=== PATIENT | male | born 1945 | race Hispanic/Latino ===

== ENCOUNTER 2018-08-10 06:44 | Observation (INO) | payer MEDICARE ==
[~2018-08-10] VITALS: Ht 170.2 cm; Wt 76.8 kg
[2018-08-10] MEDS ORDERED: ASPIRIN 325 MG TABLET ONE (06:52)
[2018-08-10 07:07] LABS: BASOPHILS % (AUTO) 1.1 % (0.0-5.0); EOSINOPHILS % (AUTO) 1.7 % (0.0-8.0); HEMATOCRIT 40.3 % (42-54); LYMPHOCYTES % (AUTO) 38.4 % (21.0-51.0); MEAN CORPUSCULAR HEMOGLOBIN 30.2 pg (27.0-33.0); MEAN CORPUSCULAR HGB CONC 34.3 g/dL (32.0-36.0); MONOCYTES % (AUTO) 7.7 % (3.0-13.0); NEUTROPHILS % (AUTO) 51.1 % (40.0-77.0); PLATELET COUNT (AUTO) 207 K/uL (130-400); RED BLOOD CELL COUNT(AUTO) 4.58 MIL/uL (4.50-6.20); RED CELL DISTRIBUTION WIDTH 14.1 % (11.0-15.5); WHITE BLOOD COUNT (AUTO) 5.4 K/uL (4.8-10.8)
[2018-08-10 07:11] LABS: POTASSIUM 3.9 mmol/L (3.5-5.1)
[2018-08-10 07:24] LABS: ALBUMIN 3.7 g/dL (3.5-5.0); BILIRUBIN,TOTAL 0.4 mg/dL (0.2-1.0); TOTAL PROTEIN, SERUM 7.3 g/dL (6.0-8.3)
[2018-08-10 07:35] LABS: INR 1.06 (0.85-1.15); PARTIAL THROMBOPLASTIN TIME 28.8 SEC (26.3-35.5); PROTHROMBIN TIME 11.1 SEC (9.6-11.6)
[2018-08-10] MEDS ORDERED: ONDANSETRON HCL 4 MG/2 ML VIAL ONE (07:46)
[2018-08-10] MEDS ORDERED: MORPHINE SULFATE 4 MG/1ML SYG ONE (07:47)
[2018-08-10] MEDS ORDERED: ACETAMINOPHEN 325 MG TAB PO PRN (10:15)
[2018-08-10] MEDS ORDERED: MORPHINE SULFATE 2 MG/ML 1ML SYG IV PRN (10:15)
[2018-08-10] MEDS ORDERED: HYDRALAZINE HCL 20 MG/ML VIAL IV PRN (10:15)
[2018-08-10] MEDS ORDERED: ONDANSETRON HCL 4 MG/2 ML VIAL IV PRN (10:15)
[2018-08-10 11:12] LABS: HEMOGLOBIN A1C 5.9 % (4.0-6.0)
[2018-08-10 11:25] VITALS: BP 153/64
[2018-08-10] MEDS: NITROGLYCERIN 1GM/1 INCH PACKET TD SCH ×2 (13:27→20:16)
[2018-08-10] MEDS: SODIUM CHLORIDE 0.9% 1000ML 1,000 ML IV SCH ×2 (13:27→20:15)
[2018-08-10] MEDS: PANTOPRAZOLE SODIUM 40 MG TABLET.DR PO SCH (13:28)
[2018-08-10 15:40] LABS: CREATINE KINASE, TOTAL 311 U/L (21-232); MYOGLOBIN 82 ng/mL (10-92); TROPONIN I < 0.04 ng/mL (0.00-0.06)
[2018-08-10 16:00] VITALS: BP_SYST 120; BP_SYST 149; BP_DIAS 64; BP_DIAS 69
[2018-08-10 20:00] VITALS: BP 107/51
[2018-08-10] MEDS: PREDNISONE 20 MG TABLET PO SCH (20:17)
[2018-08-10] MEDS: METOPROLOL TARTRATE 25 MG TAB PO SCH (21:10)
[2018-08-10 22:48] LABS: CREATINE KINASE, TOTAL 275 U/L (21-232); MYOGLOBIN 70 ng/mL (10-92); TROPONIN I < 0.04 ng/mL (0.00-0.06)
[2018-08-11] VITALS: BP 95/50
[2018-08-11 02:20] LABS: CREATINE KINASE, TOTAL 269 U/L (21-232); MYOGLOBIN 62 ng/mL (10-92); TROPONIN I < 0.04 ng/mL (0.00-0.06)
[2018-08-11] MEDS: NITROGLYCERIN 1GM/1 INCH PACKET TD SCH ×2 (02:32→09:17)
[2018-08-11 04:00] VITALS: BP 86/57
[2018-08-11] MEDS: SODIUM CHLORIDE 0.9% 1000ML 1,000 ML IV SCH (04:48)
[2018-08-11] MEDS ORDERED: IBUP-2070 PO (06:07)
[2018-08-11] MEDS ORDERED: NAPR-1023 PO (06:07)
[2018-08-11 07:30] VITALS: BP 97/49
[2018-08-11] MEDS ORDERED: CLOPIDOGREL BISULFATE 75 MG TAB PO SCH (09:00)
[2018-08-11] MEDS ORDERED: ENOXAPARIN SODIUM 40 MG/0.4 ML SYRINGE SQ SCH (09:00)
[2018-08-11] MEDS ORDERED: ASPIRIN 325 MG TABLET PO SCH (09:00)
[2018-08-11] MEDS: PREDNISONE 20 MG TABLET PO SCH (09:17)
[2018-08-11] MEDS: METOPROLOL TARTRATE 25 MG TAB PO SCH (09:17)
[2018-08-11] MEDS: PANTOPRAZOLE SODIUM 40 MG TABLET.DR PO SCH (09:22)
[2018-08-11 11:00] VITALS: BP 110/69
== END 2018-08-11 16:00 | disposition home or self-care (01) ==
LOC: EDH 06:44 → EDHIP 10:03 → 3CH 11:26
PROVIDERS: ADMIT Internal Medicine; ATTEND Internal Medicine
DX: R07.89 Other chest pain (principal); M94.0 Chondrocostal junction syndrome [Tietze]; K21.9 Gastro-esophageal reflux disease without esophagitis
CPT/HCPCS: 36415 ×2; 70450; 71045; 80053; 82550 ×4; 83036; 83874 ×4; 83880; 84484 ×4; 85025; 85610; 85730; 93005 ×2; 93306; 96372; 96374; 99285; G0378 ×30; J1650; J2270; J2405; J7030

== ENCOUNTER 2021-08-01 15:45 | Emergency (ER) | payer MEDICARE ==
[~2021-08-01] VITALS: Ht 157.5 cm; Wt 68.5 kg
[~2021-08-01 15:45] MED LIST: IBUP-2070 PO; NAPR-1023 PO
[2021-08-01 18:38] LABS: BASOPHILS % (AUTO) 0.8 % (0.0-5.0); HEMATOCRIT 42.4 % (42-54); LYMPHOCYTES % (AUTO) 38.2 % (21.0-51.0); MEAN CORPUSCULAR HEMOGLOBIN 30.4 pg (27.0-33.0); MEAN CORPUSCULAR VOLUME 92.2 fL (79-99); MONOCYTES % (AUTO) 7.6 % (3.0-13.0); PLATELET COUNT (AUTO) 210 K/uL (130-400); RED CELL DISTRIBUTION WIDTH 13.7 % (11.0-15.5); WHITE BLOOD COUNT (AUTO) 7.9 K/uL (4.8-10.8)
[2021-08-01 18:55] LABS: CREATININE 0.8 mg/dL (0.5-1.5); POTASSIUM 4.2 mmol/L (3.5-5.1)
[2021-08-01 18:59] LABS: ALBUMIN 4.4 g/dL (3.5-5.0); BILIRUBIN,TOTAL 0.5 mg/dL (0.2-1.0); TOTAL PROTEIN, SERUM 8.1 g/dL (6.0-8.3)
[2021-08-01 20:04] VITALS: BP 145/73
[2021-08-01] MEDS ORDERED: CEPH500B PO (20:24)
[2021-08-01] MEDS ORDERED: MELO7.5T12 PO (20:24)
[2021-08-01] MEDS ORDERED: IBUPROFEN 600 MG TABLET PO ONE (20:30)
[2021-08-01] MEDS ORDERED: TETANUS/DIPHTHERIA TOXOID [ADULT] 0.5 ML VIAL IM ONE (20:30)
[2021-08-01] MEDS ORDERED: CEPHALEXIN 500 MG CAPSULE PO ONE (20:30)
== END 2021-08-01 20:55 | disposition home or self-care (01) ==
LOC: EDH 15:45
DX: L03.116 Cellulitis of left lower limb (principal); Z79.899 Other long term (current) drug therapy
CPT/HCPCS: 36415; 73630; 80053; 83605; 85025; 87040; 90471; 90714

== ENCOUNTER 2021-11-11 16:51 | Observation (INO) | payer MEDICARE ==
[~2021-11-11] VITALS: Ht 157.5 cm; Wt 72.6 kg
[~2021-11-11 16:51] MED LIST changes: +CEPH500B PO; +MELO7.5T12 PO
[2021-11-11 21:31] LABS: BASOPHILS % (AUTO) 0.9 % (0.0-5.0); EOSINOPHILS % (AUTO) 1.5 % (0.0-8.0); HEMATOCRIT 41.8 % (42-54); LYMPHOCYTES % (AUTO) 37.3 % (21.0-51.0); MEAN CORPUSCULAR HEMOGLOBIN 30.2 pg (27.0-33.0); MEAN CORPUSCULAR HGB CONC 32.8 g/dL (32.0-36.0); MEAN CORPUSCULAR VOLUME 92.3 fL (79-99); MONOCYTES % (AUTO) 6.9 % (3.0-13.0); NEUTROPHILS % (AUTO) 53.2 % (40.0-77.0); PLATELET COUNT (AUTO) 242 K/uL (130-400); RED BLOOD CELL COUNT(AUTO) 4.53 MIL/uL (4.50-6.20); RED CELL DISTRIBUTION WIDTH 13.7 % (11.0-15.5); WHITE BLOOD COUNT (AUTO) 6.7 K/uL (4.8-10.8)
[2021-11-11 21:32] LABS: APPEARANCE,URINE Clear (CLEAR); BILIRUBIN,URINE Negative (NEGATIVE); COLOR,URINE Yellow (YELLOW); GLUCOSE, URINE (UA) Negative (NEGATIVE); KETONES,URINE Negative (NEGATIVE); LEUKOCYTE ESTERASE ,URINE Negative (NEGATIVE); NITRATE,URINE Negative (NEGATIVE); OCCULT BLOOD,URINE Negative (NEGATIVE); PH,URINE 6.5 (5.0-8.0); PROTEIN,URINE Negative (NEGATIVE)
[2021-11-11 21:42] LABS: CREATININE 0.8 mg/dL (0.5-1.5); POTASSIUM 4.1 mmol/L (3.5-5.1)
[2021-11-11 21:57] LABS: ALBUMIN 4.3 g/dL (3.5-5.0); BILIRUBIN,TOTAL 0.3 mg/dL (0.2-1.0); TOTAL PROTEIN, SERUM 7.9 g/dL (6.0-8.3)
[2021-11-12] MEDS ORDERED: 0.9%NACL 1000ML 1,000 ML IV ONE (00:30)
[2021-11-12] MEDS ORDERED: IOHEXOL-350 75 ML VIAL IV ONE (00:55)
[2021-11-12] MEDS ORDERED: ACETAMINOPHEN 500 MG TABLET ONE (00:56)
[2021-11-12 04:22] LABS: AMPHET/METH SCREEN,URINE NEGATIVE (NEGATIVE); BARBITURATE SCREEN, URINE NEGATIVE (NEGATIVE); BENZODIAZEPINES SCREEN,URINE NEGATIVE (NEGATIVE); CANNABINOID SCREEN,URINE NEGATIVE (NEGATIVE); COCAINE SCREEN,URINE NEGATIVE (NEGATIVE); OPIATE SCREEN,URINE NEGATIVE (NEGATIVE); PHENCYCLIDINE SCREEN,URINE NEGATIVE (NEGATIVE)
[2021-11-12] MEDS ORDERED: ONDANSETRON 4MG INJ IV PRN (04:30)
[2021-11-12] MEDS ORDERED: NITROGLYCERIN 0.4 MG SL TAB SL PRN (04:30)
[2021-11-12] MEDS ORDERED: ACETAMINOPHEN 325 MG TAB PO PRN ×2 (04:30)
[2021-11-12 06:58] LABS: INR 1.07 (0.85-1.15); PROTHROMBIN TIME 11.6 SEC (9.6-11.6)
[2021-11-12 06:59] LABS: PARTIAL THROMBOPLASTIN TIME 29.1 SEC (26.3-35.5)
[2021-11-12 07:04] LABS: HEMOGLOBIN A1C 5.6 % (4.0-6.0)
[2021-11-12 07:21] LABS: ALBUMIN 3.7 g/dL (3.5-5.0); BILIRUBIN,TOTAL 0.5 mg/dL (0.2-1.0); CREATININE 0.7 mg/dL (0.5-1.5); MAGNESIUM 2.2 mg/dL (1.80-2.40); POTASSIUM 4.1 mmol/L (3.5-5.1); THYROID STIMULATING HORMONE 2.7 uIU/mL (0.36-3.74); TOTAL PROTEIN, SERUM 6.9 g/dL (6.0-8.3)
[2021-11-12] MEDS: ENOXAPARIN SODIUM 40 MG/0.4 ML SYRINGE SQ SCH (09:39)
[2021-11-12] MEDS: FAMOTIDINE 20MG TAB PO SCH ×2 (09:39→20:41)
[2021-11-12] MEDS: ASPIRIN 81 MG EC TAB PO SCH (09:39)
[2021-11-12 15:00] VITALS: BP 126/76
[2021-11-12 18:20] VITALS: BP 118/75
[2021-11-12 18:23] VITALS: BP 125/80
[2021-11-12 18:26] VITALS: BP 137/66
[2021-11-12 20:42] VITALS: BP 103/61
[2021-11-13 00:24] VITALS: BP 97/60
[2021-11-13 03:40] VITALS: BP 93/51
[2021-11-13 06:27] LABS: BASOPHILS % (AUTO) 0.9 % (0.0-5.0); EOSINOPHILS % (AUTO) 1.7 % (0.0-8.0); HEMATOCRIT 40.5 % (42-54); LYMPHOCYTES % (AUTO) 34.8 % (21.0-51.0); MEAN CORPUSCULAR HEMOGLOBIN 30.3 pg (27.0-33.0); MEAN CORPUSCULAR HGB CONC 32.3 g/dL (32.0-36.0); MEAN CORPUSCULAR VOLUME 93.5 fL (79-99); NEUTROPHILS % (AUTO) 56.4 % (40.0-77.0); PLATELET COUNT (AUTO) 238 K/uL (130-400); RED BLOOD CELL COUNT(AUTO) 4.33 MIL/uL (4.50-6.20); RED CELL DISTRIBUTION WIDTH 13.7 % (11.0-15.5); WHITE BLOOD COUNT (AUTO) 5.4 K/uL (4.8-10.8)
[2021-11-13 06:42] LABS: ALBUMIN 3.8 g/dL (3.5-5.0); BILIRUBIN,TOTAL 0.4 mg/dL (0.2-1.0); CREATININE 0.8 mg/dL (0.5-1.5); POTASSIUM 3.7 mmol/L (3.5-5.1); TOTAL PROTEIN, SERUM 7.1 g/dL (6.0-8.3)
[2021-11-13 07:25] VITALS: BP 98/67
[2021-11-13] MEDS: FAMOTIDINE 20MG TAB PO SCH (08:55)
[2021-11-13] MEDS: ASPIRIN 81 MG EC TAB PO SCH (08:55)
[2021-11-13] MEDS: ENOXAPARIN SODIUM 40 MG/0.4 ML SYRINGE SQ SCH (08:56)
[2021-11-13] MEDS ORDERED: MECL-226 PO (09:27)
[2021-11-13] MEDS ORDERED: MECLIZINE HCL 12.5 MG TABLET PO PRN (09:30)
[2021-11-13 11:00] VITALS: BP 120/71
== END 2021-11-13 16:45 | disposition home or self-care (01) ==
LOC: EDH 16:51 → EDHIP 11-12 04:03 → INTOOBSV 11-12 04:03 → 3AH 11-12 14:57
PROVIDERS: ADMIT Internal Medicine; ATTEND Internal Medicine
DX: R55 Syncope and collapse (principal); Z20.822 Contact with and (suspected) exposure to COVID-19; I63.9 Cerebral infarction, unspecified; R07.89 Other chest pain; M94.0 Chondrocostal junction syndrome [Tietze]; K21.9 Gastro-esophageal reflux disease without esophagitis; M19.90 Unspecified osteoarthritis, unspecified site; F03.90 Unspecified dementia, unspecified severity, without behavioral disturbance, psychotic disturbance, mood disturbance, and anxiety; G51.0 Bell's palsy; G96.08 Other cranial cerebrospinal fluid leak; R29.700 NIHSS score 0; Z90.49 Acquired absence of other specified parts of digestive tract; Z79.899 Other long term (current) drug therapy; Z98.890 Other specified postprocedural states; Y92.000 Kitchen of unspecified non-institutional (private) residence as the place of occurrence of the external cause
CPT/HCPCS: 36415 ×3; 70450; 70496; 70498; 70551; 71045; 80053 ×3; 80061; 80305; 81003; 82550; 83036; 83735; 83874 ×2; 84443; 84484 ×2; 85025 ×2; 85610; 85730; 87635; 93005 ×2; 93306; 93880; 96360; 96361; 96372 ×2; 97039; 97161; 99285; G0378 ×5; J1650 ×2; Q9967

== ENCOUNTER 2022-03-08 04:22 | Emergency (ER) | payer MEDICARE ==
[~2022-03-08] VITALS: Ht 172.7 cm; Wt 71.7 kg
[~2022-03-08 04:22] MED LIST changes: -CEPH500B PO; -IBUP-2070 PO; +MECL-226 PO; -MELO7.5T12 PO; -NAPR-1023 PO
[2022-03-08 04:59] LABS: APPEARANCE,URINE Clear (CLEAR); BILIRUBIN,URINE Negative (NEGATIVE); COLOR,URINE Dark Yellow (YELLOW); GLUCOSE, URINE (UA) Negative (NEGATIVE); KETONES,URINE Trace mg/dL (NEGATIVE); LEUKOCYTE ESTERASE ,URINE Negative (NEGATIVE); NITRATE,URINE Negative (NEGATIVE); OCCULT BLOOD,URINE Negative (NEGATIVE); PROTEIN,URINE POS 1+ mg/dL (NEGATIVE)
[2022-03-08 04:59] LABS: BASOPHILS % (AUTO) 1.1 % (0.0-5.0); EOSINOPHILS % (AUTO) 2.3 % (0.0-8.0); HEMATOCRIT 40.5 % (42-54); LYMPHOCYTES % (AUTO) 42.8 % (21.0-51.0); MEAN CORPUSCULAR HEMOGLOBIN 29.8 pg (27.0-33.0); MEAN CORPUSCULAR HGB CONC 32.3 g/dL (32.0-36.0); MEAN CORPUSCULAR VOLUME 92.3 fL (79-99); MONOCYTES % (AUTO) 8.4 % (3.0-13.0); NEUTROPHILS % (AUTO) 45.4 % (40.0-77.0); PLATELET COUNT (AUTO) 175 K/uL (130-400); RED BLOOD CELL COUNT(AUTO) 4.39 MIL/uL (4.50-6.20); RED CELL DISTRIBUTION WIDTH 13.5 % (11.0-15.5); WHITE BLOOD COUNT (AUTO) 4.7 K/uL (4.8-10.8)
[2022-03-08 05:03] LABS: CREATININE 0.8 mg/dL (0.5-1.5); POTASSIUM 3.8 mmol/L (3.5-5.1)
[2022-03-08 05:07] LABS: ALBUMIN 3.9 g/dL (3.5-5.0); BILIRUBIN,TOTAL 0.5 mg/dL (0.2-1.0); TOTAL PROTEIN, SERUM 7.3 g/dL (6.0-8.3)
[2022-03-08] MEDS ORDERED: BISACODYL 10 MG SUPP.RECT RC ONE (05:30)
[2022-03-08 05:33] LABS: RBC,URINE 0-1 /HPF (0-1)
[2022-03-08 05:35] LABS: BACTERIA,URINE None Seen /HPF (None Seen)
[2022-03-08 05:36] LABS: MUCUS,URINE Moderate LPF (None Seen); SQUAMOUS EPITHELIAL CELL,UR Rare /HPF (0-2)
[2022-03-08 07:29] VITALS: BP 134/45
[2022-03-08] MEDS ORDERED: TAMS-1 PO (07:43)
== END 2022-03-08 08:14 | disposition home or self-care (01) ==
LOC: EDH 04:22
DX: K59.00 Constipation, unspecified (principal); N40.0 Benign prostatic hyperplasia without lower urinary tract symptoms; Z90.49 Acquired absence of other specified parts of digestive tract; Z98.890 Other specified postprocedural states
CPT/HCPCS: 36415; 74176; 80053; 81001; 83690; 85025